=== PATIENT | male | born 1970 | race Caucasian/White ===

== ENCOUNTER 2016-09-12 15:07 | Emergency (ER) | payer BC, OTHER ==
[~2016-09-12] VITALS: Ht 182.9 cm; Wt 85.7 kg
[2016-09-12] MEDS ORDERED: LIDOCAINE 2% 20 ML (XYLOCAINE) VIAL ONE (15:10)
--- NOTE | 2016-09-12 15:12 | ED Upper Extremity ---
General Source: patient Exam Limitations: no limitations History of Present Illness Time seen by provider: 15:08 Initial Comments Just prior to arrival the patient has cut into his left thumb and right palm with a chop saw with carbide blade for chopping wood. He super glued his right palm but his left thumb is now hemostatic although it is cut into the base of the nail down to bone. The finger is still intact. It is painful he denies fever nausea, vomiting diarrhea, malaise. Last tetanus vaccine was in . No other significant medical history. He does work as a physical education and primary education. Allergies and Home Medications Allergies Coded Allergies: No Known Drug Allergies (Unverified , 09/12/16) Home Medications Hydrocodone/Acetaminophen 1 Each Tablet, 1 EACH PO Q6H PRN for PAIN, #14 Ref 0 Prescribed by: FERMIN MARVIN on 09/12/16 1542 Meloxicam 15 Mg Tablet, #90 (Reported) Sertraline HCl 100 Mg Tablet, #30 (Reported) Sulfamethoxazole/Trimethoprim 1 Each Tablet, 1 EACH PO BID for 7 Days, #14 Ref 0 Prescribed by: FERMIN MARVIN on 09/12/16 1542 Constitutional: No chills, No diaphoresis Respiratory: No cough, No short of breath Cardiovascular: No chest pain, No Hx of Intervention, No syncope Gastrointestinal: No abdominal pain, No constipation, No diarrhea Skin: see HPI, No pruritus, No rash Physical Exam Vital Signs Vital Sign - Last 12Hours 09/12/16 15:08 Temp 99.1 Pulse 99 Resp 24 B/P (MAP) 148/82 Pulse Ox 99 O2 Delivery Room Air Capillary Refill : General Appearance: WD/WN, mild distress (pain) Neck: non-tender, normal inspection Cardiovascular: normal peripheral pulses, regular rate, rhythm, no edema Respiratory: chest non-tender, no respiratory distress, no accessory muscle use Gastrointestinal: non tender, soft Hand: Left (thumb with a linear laceration across the base of the thumbnail severing the thumbnail from its base. Hemostatic, no foreign bodies found on irrigation.), laceration, nail injury Neurologic/Tendon: normal sensation, normal motor functions, normal tendon functions, responds to pain, no evidence tendon injury Neurologic/Psychiatric: no motor/sensory deficits, alert, oriented x 3, other ( distal left thumb tip sensation intact to fine prick, pain.) Progress/Results/Core Measures Results/Orders My Orders Orders - FERMIN MARVIN Hand, Left, 3 Views (09/12/16 15:13) Fentanyl Injection (Sublimaze Injection (09/12/16 15:13) Dipht,Pertuss(Acell),Tet Adult (Boostrix (09/12/16 15:13) Lidocaine 2% Injection 20 Ml (Xylocaine (09/12/16 15:13) Vital Signs/I&O Vital Sign - Last 12Hours 09/12/16 09/12/16 15:08 16:01 Temp 99.1 Pulse 99 92 Resp 24 18 B/P (MAP) 148/82 Pulse Ox 99 99 O2 Delivery Room Air Progress Note : Time: 15:34 Progress Note After cleaning the wound the wound is hemostatic without foreign debris seen on x-ray or visual inspection after getting obese irrigation. We'll apply a semi- occlusive dressing of petroleum impregnated gauze and splint the thumb with a goal of immobilizing the 2 distal joints. After eating and a ring block on his left thumb his tendons are intact and his range of motion is intact. Pain is controlled. He did have a little flushing and dizziness on receiving the fentanyl IM. This was temporary. He'll be okay to follow up later this week with his PCP Dr. Lagunas. TDaP given 174: Radiology over read of x-ray does not call the distal phalangeal fracture. However I still feel comfortable immobilizing the joint for a few days until he can follow up with PCP. Follow-up x-ray may be indicated otherwise in primary reasonable to discontinue the splint has patient tolerates this given that his immediate tendon function was intact after the injury. Diagnostic Imaging Diagonstic Imaging: Xray Plain Films/CT/US/NM/MRI: hand Comments Some disruption of the distal phalanges of the left first digit. No foreign bodies seen on x-ray. [facility] [place], [place] NAME: LYSSA HERNANDEZ REC#: [id number] PT STATUS: DEP ER : 1970 PHYSICIAN: FERMIN MARVIN MD ADMIT DATE: 09/12/16/ER Signed Date of Exam:09/12/16 HAND, LEFT, 3 VIEWS HAND, LEFT, 3 VIEWS COMPARISON: None available. INDICATION: Laceration of distal first digit due to a table saw injury. TECHNIQUE: PA, oblique and lateral views of the hand. FINDINGS: No fracture or traumatic malalignment. No radiopaque foreign body. Joint spaces are well-maintained. IMPRESSION: 1. No acute fracture or malalignment. 2. No radiopaque foreign body. Dictated by: Dictated on workstation # [id number] Dict: 09/12/16 1549 Trans: 09/12/16 1732 [id number] Interpreted by: DANA BEARD MD Electronically signed by: DANA BEARD MD 09/12/161731 Departure Impression Impression: Primary Impression: Thumb fracture Qualified Codes: S62.525B - Nondisplaced fracture of distal phalanx of left thumb, initial encounter for open fracture Additional Impression: Thumb laceration Qualified Codes: S61.012A - Laceration without foreign body of left thumb without damage to nail, initial encounter Disposition: 01 HOME, SELF-CARE Condition: Improved Departure-Patient Inst. Decision time for Depature: 15:37 Referrals: LAKSHMI LAGUNAS MD Patient Instructions: Finger Fracture (DC) Add. Discharge Instructions: You have fractured the distal phalanx of your left thumb as well as a large laceration. He should use petroleum jelly as needed to keep the wound clean and use a gentle soap and water twice daily. Wear the splint until released by your primary care physician. You have received a tetanus vaccination today. He'll be given pain meds to use if the Tylenol and meloxicam and ice are insufficient to control your pain. The numbing medicine will wear off in about 45 minutes. The pain medicine I'm giving you is called hydrocodone and will cause constipation so it should be used with MiraLAX every day to treat the subsequent constipation. If you have increased swelling pain that is intractable, nausea, fever or other signs of red streaks going up the arm that I be consistent with a wound infection you should return to the ER or your primary care physician immediately. He will also be given antibiotics to take for the next week. Scripts Hydrocodone/Acetaminophen (Hydrocodon -Acetaminophen 5-325) 1 Each Tablet 1 EACH PO Q6H Y for PAIN, #14 TAB 0 Refills Prov: FERMIN MARVIN 09/12/16 Sulfamethoxazole/Trimethoprim (Bactrim Ds Tablet) 1 Each Tablet 1 EACH PO BID for 7 Days, #14 TAB 0 Refills Prov: FERMIN MARVIN 09/12/16 Copy Copies To 1: LAKSHMI LAGUNAS MD, TITUS J Sep 12, 2016 15:12
[2016-09-12] MEDS ORDERED: fentaNYL INJECTION 100 MCG/2 ML AMP IM STA (15:13)
[2016-09-12] MEDS ORDERED: TETANUS,DIPTH,PERTUSS P/F (BOOSTRIX) 0.5 ML VIAL IM STA (15:13)
[2016-09-12] MEDS ORDERED: LIDOCAINE 2% 20 ML (XYLOCAINE) VIAL INJ STA (15:13)
[2016-09-12] MEDS ORDERED: MELO15TA39 (15:32)
[2016-09-12] MEDS ORDERED: SERT100T8 (15:32)
[2016-09-12] MEDS ORDERED: HYDR-3812 PO (15:42)
[2016-09-12] MEDS ORDERED: SULF1TAB35 PO (15:42)
--- NOTE | 2016-09-12 15:52 | Diagnostic Imaging Report ---
HAND, LEFT, 3 VIEWS COMPARISON: None available. INDICATION: Laceration of distal first digit due to a table saw injury. TECHNIQUE: PA, oblique and lateral views of the hand. FINDINGS: No fracture or traumatic malalignment. No radiopaque foreign body. Joint spaces are well-maintained. IMPRESSION: 1. No acute fracture or malalignment. 2. No radiopaque foreign body. Dictated by: Dictated on workstation # [id number]
[2016-09-12 16:01] VITALS: BP 119/74
== END 2016-09-12 16:01 | disposition home or self-care (01) ==
LOC: ER 15:11
DX: S61.112A Laceration without foreign body of left thumb with damage to nail, initial encounter (principal); S61.411A Laceration without foreign body of right hand, initial encounter; Z23 Encounter for immunization; W31.2XXA Contact with powered woodworking and forming machines, initial encounter; Y93.H9 Activity, other involving exterior property and land maintenance, building and construction; Y99.8 Other external cause status
CPT/HCPCS: 73130; 90471; 90715; 96372; 99282

== ENCOUNTER → 2017-07-19 | Outpatient (CLI) | payer BC ==
[~2017-07-19] MED LIST: ACHD5005 PO; MELO15TA39; SERT100T8; SULF1TAB35 PO
--- NOTE | 2017-07-19 12:11 | Diagnostic Imaging Report ---
INDICATION: Cough. COMPARISON: None. FINDINGS: Two views of the chest are obtained. Heart size is normal. The pulmonary vessels appear unremarkable. There is no pneumothorax, mediastinal widening, or pleural fluid. The lungs are clear. The osseous structures appear unremarkable. IMPRESSION: Negative chest. Dictated by: Dictated on workstation # [id number]
== END ==
LOC: RAD 11:31
PROVIDERS: ATTEND Family Medicine
DX: R05 Cough (principal); Z79.899 Other long term (current) drug therapy
CPT/HCPCS: 71046

== ENCOUNTER 2019-12-19 22:30 | Emergency (ER) | payer BC, OTHER ==
[~2019-12-19] VITALS: Ht 180 cm; Wt 98.0 kg
[2019-12-19 22:49] VITALS: BP 152/95
[2019-12-19] MEDS ORDERED: AMOXICILLIN 500 MG (POLYMOX) CAP PO STA (22:49)
--- NOTE | 2019-12-19 22:56 | ED EENT ---
History of Present Illness General Chief Complaint: Dental Problems/Pain Stated Complaint: P/O TOOTH EXTRACTION , PAIN Source: patient Exam Limitations: no limitations History of Present Illness Date Seen by Provider: Dec 19, 2019 Time Seen by Provider: 22:44 Initial Comments Patient arrives the ER by private conveyance from home with chief complaint of recent tooth extraction and now pain in the socket on his left upper maxillary molars. He is not having any severe bleeding or purulent discharge. No fever but some mild swelling of the soft tissue around his left face. No nasal discharge or congestion. No fever nausea vomiting or diarrhea. He had a single dose of hydrocodone left over which he took at 1900 without any relief. No antibiotics, topical or opiates from the dentist. Allergies and Home Medications Allergies Coded Allergies: No Known Drug Allergies (Unverified , 09/12/16) Home Medications Hydrocodone Bit/Acetaminophen 1 Each Tablet, 1 EACH PO Q6H PRN for PAIN Prescribed by: FERMIN MARVIN on 09/12/16 154 Sulfamethoxazole/Trimethoprim 1 Each Tablet, 1 EACH PO BID Prescribed by: FERMIN MARVIN on 09/12/16 1542 Patient Home Medication List Home Medication List Reviewed: Yes Review of Systems Review of Systems Constitutional: No chills, No diaphoresis Eyes: Denies Blindness, Denies Drainage Ears: Denies Dizziness, Denies Pain Nose: denies clots, denies congestion Mouth: see HPI, pain, swelling Throat: denies pain, denies swelling All Other Systems Reviewed Negative Unless Noted: Yes Past Abucxqu-Axvikw-Oouctu Hx Patient Social History Alcohol Use: Denies Use Recreational Drug Use: No Smoking Status: Never a Smoker Recent Foreign Travel: No Contact w/Someone Who Travel: No Recent Hopitalizations: No Past Medical History Reproductive Disorders: No Physical Exam Height, Weight, BMI Height: 6'" Weight: 189lbs. oz. 85.327112cq; BMI Method:Stated General Appearance: WD/WN, no apparent distress Eyes: bilateral eye normal inspection, bilateral eye PERRL, bilateral eye EOMI Ears: bilateral ear auricle normal, bilateral ear canal normal Nose: normal inspection; No active bleeding, No discharge Mouth/Throat: other (recent extraction with a blood clot in the socket of the left maxillary molar. No significant fluctuance, swelling or discharge.) Neck: full range of motion, supple Cardiovascular: normal peripheral pulses, regular rate, rhythm Respiratory: no respiratory distress, no accessory muscle use Neurologic/Psychiatric: alert, oriented x 3 Skin: normal color, warm/dry Progress/Results/Core Measures Results/Orders My Orders Orders - FERMIN MARVIN Lidocaine 2% Viscous 15 Ml (Xylocaine Vi (12/19/19 23:00) Amoxicillin Capsule (Polymox Capsule) (12/19/19 22:49) Progress Progress Note : Time: 22:55 Progress Note Viscous lidocaine and Hurricaine spray. Put him on antibiotics and have him follow-up with the dentist. [facility] could not locate the patient. Departure Impression Primary Impression: Dry tooth socket Disposition: HOME, SELF-CARE Condition: Stable Departure-Patient Inst. Decision time for Depature: 22:57 Referrals: LAKSHMI GROSS MD (PCP/Family) Primary Care Physician Patient Instructions: Dental Pain (DC) Add. Discharge Instructions: Viscous lidocaine 5 mL on some gauze packed up into the tooth socket every 4 hours as necessary for pain. When this runs that you may use Orajel or other similar topical ointments. Tylenol 650 mg every 8 hours as necessary for pain. Ibuprofen 800 mg every 8 hours as necessary for pain. Warm, moist heating pads applied to the face may help with pain. Amoxicillin one capsule 3 times a day for the next 7 days. Expect improvement in the next 3-4 days. Hydrocodone one tablet every 6 hours as necessary for breakthrough pain. Follow-up with a dentist for further management of your symptoms. All discharge instructions reviewed with patient and/or family. Voiced understanding. Scripts Amoxicillin (Amoxicillin) 500 Mg Capsule 500 MG PO TID for 7 Days, #21 CAP 0 Refills Prov: FERMIN MARVIN 12/19/19 Hydrocodone/Acetaminophen (Hydrocodone-Acetamin 5-325 mg) 1 Each Tablet 1 EACH PO Q6H PRN for PAIN-SEVERE (8-10), #8 TAB 0 Refills Prov: FERMIN MARVIN 12/19/19 [viscous lidocaine 2%] 2% GEL No Conflict Check 5 ML MM Q4H PRN for PAIN-BREAKTHROUGH, #100 ML 0 Refills Prov: FERMIN MARVIN 12/19/19 FERMIN MARVIN Dec 19, 2019 22:56
[2019-12-19] MEDS ORDERED: LIDOCAINE 2% VISCOUS 15 ML UDC PO ONE (23:00)
[2019-12-19] MEDS ORDERED: HYDR-83 PO (23:02)
[2019-12-19] MEDS ORDERED: viscous lidocaine 2% MM (23:02)
[2019-12-19] MEDS ORDERED: AMOX500C2 PO (23:03)
[2019-12-19] MEDS ORDERED: KETOROLAC 60 MG/2 ML VIAL IM ONE (23:15)
== END 2019-12-19 23:14 | disposition home or self-care (01) ==
LOC: EDUNIT# 22:30 → ER 22:31
DX: M27.3 Alveolitis of jaws (principal)
CPT/HCPCS: 99284

== ENCOUNTER 2021-10-21 05:47 | Emergency (ER) | payer BC ==
[~2021-10-21] VITALS: Ht 180 cm; Wt 88.6 kg
[~2021-10-21 05:47] MED LIST changes: +AMOX500C2 PO; +SERT-414; -SERT100T8; -SULF1TAB35 PO; +SULF1TAB38 PO; +viscous lidocaine 2% MM
[2021-10-21] MEDS ORDERED: NS IV 1000 ML 1,000 ML IV STA (06:04)
[2021-10-21] MEDS ORDERED: KETOROLAC 30 MG/ML VIAL IVP STA (06:04)
[2021-10-21] MEDS ORDERED: fentaNYL INJ 100 MCG/2 ML AMP IVP STA ×2 (06:04→07:33)
[2021-10-21] MEDS ORDERED: ONDANSETRON 4 MG/2 ML (SDV) Z0FRAN IVP ONE ×2 (06:15→07:45)
[2021-10-21 06:17] LABS: BASOPHILS % (AUTO) 0 % (0-10); EOSINOPHILS # (AUTO) 0.1 10^3/uL (0.0-0.3); EOSINOPHILS % (AUTO) 1 % (0-10); HEMATOCRIT 46 % (40-54); HEMOGLOBIN 16.2 g/dL (13.3-17.7); LYMPHOCYTES # (AUTO) 2.5 10^3/uL (1.0-4.0); LYMPHOCYTES % (AUTO) 29 % (12-44); MEAN CORPUSCULAR HEMOGLOBIN 31 pg (25-34); MEAN CORPUSCULAR HGB CONC 35 g/dL (32-36); MEAN CORPUSCULAR VOLUME 88 fL (80-99); MEAN PLATELET VOLUME 8.9 fL (9.0-12.2); MONOCYTES # (AUTO) 0.7 10^3/uL (0.0-1.0); MONOCYTES % (AUTO) 9 % (0-12); NEUTROPHILS # (AUTO) 5.2 10^3/uL (1.8-7.8); NEUTROPHILS % (AUTO) 60 % (42-75); PLATELET COUNT 333 10^3/uL (130-400); WHITE BLOOD COUNT 8.6 10^3/uL (4.3-11.0)
[2021-10-21 06:20] LABS: ALBUMIN 4.5 GM/DL (3.2-4.5); POTASSIUM 3.6 MMOL/L (3.6-5.0)
[2021-10-21 06:21] LABS: CALCIUM 9.4 MG/DL (8.5-10.1)
[2021-10-21 06:22] LABS: TOTAL PROTEIN 7.9 GM/DL (6.4-8.2)
[2021-10-21 06:24] LABS: BILIRUBIN,TOTAL 0.5 MG/DL (0.1-1.0)
--- NOTE | 2021-10-21 06:25 | ED GU-Male ---
General Chief Complaint: - Reproductive Stated Complaint: LEFT SIDE PAIN Nursing Triage Note: Arrives per POV w/ c/o left flank pain that started at approximately 0430. Ambulatory to room, and attached to NIBP and SpO2 monitors. Source: patient Exam Limitations: no limitations History of Present Illness Date Seen by Provider: October 21, 2021 Time Seen by Provider: 06:09 Initial Comments Here with report of acute onset of left flank pain about 4:30 AM. Pain is sharp and stabbing and remains on the left side. Denies blood in his urine or stools. Denies difficulty with bowel movements. Denies ever having problems like this before. Does have nausea due to pain. Timing/Duration: this morning Severity/Quality: moderate, severe, sharp, stabbing Location: left flank Radiation: left flank Activities at Onset: none Prior Genitourinary Problems: none Modifying Factors: Improves With Other (No exacerbating or relieving factors) Associated Symptoms: abdominal pain; No fever/chills; nausea/vomiting Allergies and Home Medications Allergies Coded Allergies: No Known Drug Allergies (Unverified , 09/12/16) Patient Home Medication List Home Medication List Reviewed: Yes Amoxicillin (Amoxicillin) 500 Mg Capsule, 500 MG PO TID Prescribed by: FERMIN MARVIN on 12/19/192302 Hydrocodone Bit/Acetaminophen (Lortab 5 Mg Tablet) 1 Each Tablet, 1 EACH PO Q6H PRN for PAIN Prescribed by: FERMIN MARVIN on 09/12/16 154 Hydrocodone/Acetaminophen (Hydrocodone-Acetamin 5-325 mg) 1 Each Tablet, 1 EACH PO Q6H PRN for PAIN-SEVERE (8-10) Prescribed by: FERMIN MARVIN on 12/19/19 230 Meloxicam (Meloxicam) 15 Mg Tablet, (Reported) Entered as Reported by: GEORGES FRANCOIS on 09/12/16 153 Sertraline HCl (Sertraline HCl) 100 Mg Tablet, (Reported) Entered as Reported by: GEORGES FRANCOIS on 09/12/16 153 Sulfamethoxazole/Trimethoprim (Bactrim Ds Tablet) 1 Each Tablet, 1 EACH PO BID Prescribed by: FERMIN MARVIN on 09/12/16 154 [viscous lidocaine 2%] 2% GEL, 5 ML MM Q4H PRN for PAIN-BREAKTHROUGH Prescribed by: FERMIN MARVIN on 12/19/19 9833 Review of Systems Review of Systems Constitutional: see HPI; No chills, No fever EENTM: No nose congestion, No throat pain Respiratory: No cough, No short of breath Cardiovascular: no symptoms reported Gastrointestinal: abdominal pain, nausea; No vomiting Genitourinary: denies dysuria; flank pain Musculoskeletal: back pain; No muscle pain Skin: no symptoms reported All Other Systemes Reviewed Negative Unless Noted: Yes Past Djbynms-Kkjued-Yvcrcw Hx Patient Social History Tobacco Use?: No Use of E-Cig and/or Vaping dev: No Substance use?: No Alcohol Use?: No Past Medical History Surgeries: No Respiratory: No Cardiac: No Neurological: No Reproductive Disorders: No Gastrointestinal: No Musculoskeletal: No Endocrine: No Cancer: No Psychosocial: No Family Medical History Reviewed Nursing Family Hx Physical Exam Vital Signs Vital Signs - First Documented 10/21/21 05:55 Temp 36.8 Pulse 66 Resp 20 B/P (MAP) 157/101 (119) Pulse Ox 100 O2 Delivery Room Air Capillary Refill : Less Than 3 Seconds Height, Weight, BMI Height: 6'" Weight: 189lbs. oz. 85.088902or; 27.00 BMI Method:Stated General Appearance: WD/WN, moderate distress, other (Difficulty sitting still due to pain in the left flank. Pacing about room.) Neck: full range of motion, supple Cardiovascular: regular rate, rhythm, no murmur Respiratory: lungs clear, normal breath sounds Gastrointestinal: soft, tenderness (Mild left-sided) Back: normal inspection, no CVA tenderness, no vertebral tenderness Extremities: non-tender, normal inspection Neurologic/Psychiatric: alert, oriented x 3 Skin: normal color, warm/dry Progress/Results/Core Measures Suspected Sepsis SIRS Temperature: Pulse: 66 Respiratory Rate: 20 Laboratory Tests 10/21/21 05:17: White Blood Count 8.6 Blood Pressure 157 /101 Mean: 119 Laboratory Tests 10/21/21 05:17: Creatinine 1.19, Platelet Count 333, Total Bilirubin 0.5 Results/Orders Lab Results Laboratory Tests Test 10/21/21 05:17 10/21/21 07:32 Range/Units White Blood Count 8.6 4.3-11.0 10^3/uL Red Blood Count 5.19 4.30-5.52 10^6/uL Hemoglobin 16.2 13.3-17.7 g/dL Hematocrit 46 40-54 % Mean Corpuscular Volume 88 80-99 fL Mean Corpuscular Hemoglobin 31 25-34 pg Mean Corpuscular Hemoglobin Concent 35 32-36 g/dL Red Cell Distribution Width 12.3 10.0-14.5 % Platelet Count 333 130-400 10^3/uL Mean Platelet Volume 8.9 L 9.0-12.2 fL Immature Granulocyte % (Auto) 1 % Neutrophils (%) (Auto) 60 42-75 % Lymphocytes (%) (Auto) 29 12-44 % Monocytes (%) (Auto) 9 0-12 % Eosinophils (%) (Auto) 1 0-10 % Basophils (%) (Auto) 0 0-10 % Neutrophils # (Auto) 5.2 1.8-7.8 10^3/uL Lymphocytes # (Auto) 2.5 1.0-4.0 10^3/uL Monocytes # (Auto) 0.7 0.0-1.0 10^3/uL Eosinophils # (Auto) 0.1 0.0-0.3 10^3/uL Basophils # (Auto) 0.0 0.0-0.1 10^3/uL Immature Granulocyte # (Auto) 0.0 0.0-0.1 10^3/uL Sodium Level 142 135-145 MMOL/L Potassium Level 3.6 3.6-5.0 MMOL/L Chloride Level 105 98-107 MMOL/L Carbon Dioxide Level 23 21-32 MMOL/L Anion Gap 14 5-14 MMOL/L Blood Urea Nitrogen 13 7-18 MG/DL Creatinine 1.19 0.60-1.30 MG/DL Estimat Glomerular Filtration Rate 75 BUN/Creatinine Ratio 11 Glucose Level 113 H 70-105 MG/DL Calcium Level 9.4 8.5-10.1 MG/DL Corrected Calcium 9.0 8.5-10.1 MG/DL Total Bilirubin 0.5 0.1-1.0 MG/DL Aspartate Amino Transf (AST/SGOT) 36 H 5-34 U/L Alanine Aminotransferase (ALT/SGPT) 52 0-55 U/L Alkaline Phosphatase 102 40-136 U/L C-Reactive Protein High Sensitivity 0.22 0.00-0.50 MG/DL Total Protein 7.9 6.4-8.2 GM/DL Albumin 4.5 3.2-4.5 GM/DL Urine Color YELLOW Urine Clarity CLEAR Urine pH 5.5 5-9 Urine Specific [place] >=1.030 1.016-1.022 Urine Protein NEGATIVE NEGATIVE Urine Glucose (UA) NEGATIVE NEGATIVE Urine Ketones NEGATIVE NEGATIVE Urine Nitrite NEGATIVE NEGATIVE Urine Bilirubin NEGATIVE NEGATIVE Urine Urobilinogen 0.2 < = 1.0 MG/DL Urine Leukocyte Esterase NEGATIVE NEGATIVE Urine RBC (Auto) 1+ H NEGATIVE Urine RBC RARE /HPF Urine WBC RARE /HPF Urine Crystals PRESENT H /LPF Urine Amorphous Sediment RARE MARCO A URATES H /LPF Urine Bacteria NEGATIVE /HPF Urine Casts NONE /LPF Urine Mucus SMALL H /LPF Urine Culture Indicated NO My Orders Orders - NEERAJ LOPEZ MD Cbc With Automated Diff (10/21/21 06:04) Comprehensive Metabolic Panel (10/21/21 06:04) Hs C Reactive Protein (10/21/21 06:04) Ua Culture If Indicated (10/21/21 06:04) Ondansetron Injection (Zofran Injectio (10/21/21 06:15) Ns Iv 1000 Ml (Sodium Chloride 0.9%) (10/21/21 06:04) Ed Iv/Invasive Line Start (10/21/21 06:04) Fentanyl Inj (Sublimaze Injection) (10/21/21 06:04) Ketorolac Injection (Toradol Injection) (10/21/21 06:04) Ct Abd/Pelvis Wo(Kidney Stone) (10/21/21 06:35) Abdomen/Kub 1view (10/21/21 06:47) Hydrocodone/Apap 5/325 Tablet (Lortab 5 (10/21/21 07:30) Fentanyl Inj (Sublimaze Injection) (10/21/21 07:33) Ondansetron Injection (Zofran Injectio (10/21/21 07:45) Medications Given in ED Current Medications Medications Dose Ordered Sig/Phil Route Start Time Stop Time Status Last Admin Dose Admin Ondansetron HCl 4 mg ONCE ONCE IVP 10/21/21 06:15 10/21/21 06:16 DC 10/21/21 06:16 4 MG Ondansetron HCl 4 mg ONCE ONCE IVP 10/21/21 07:45 10/21/21 07:46 DC 10/21/21 07:41 4 MG Vital Signs/I&O 10/21/21 05:55 Temp 36.8 Pulse 66 Resp 20 B/P (MAP) 157/101 (119) Pulse Ox 100 O2 Delivery Room Air Capillary Refill : Less Than 3 Seconds Blood Pressure Mean: 119 Progress Note : Progress Note Seen and evaluated. IV, labs, UA, normal saline 1 L bolus, Zofran 4 mg IV, Toradol 30 mg IV and fentanyl 75 mcg IV ordered. Monitor patient. 0856: We have repeated fentanyl 50 mcg IV. He also received hydrocodone 5/325 1 tab p.o. Repeat Zofran given. He has vomited now and actually feels much better. CT scan does show small left-sided distal ureteral stone as well as hydronephrosis. This should pass but I have given him instructions in case pain persists. Discharged home with return precautions. Patient verbalized understanding of instructions and agreement with plan. Diagnostic Imaging Diagonstic Imaging: CT Plain Films/CT/US/NM/MRI: abdomen, pelvis Comments [facility], [place] NAME: [facility] REC#: [id number] PT STATUS: REG ER : 1970 PHYSICIAN: NEERAJ LOPEZ MD ADMIT DATE: 10/21/21/ER Draft Date of Exam:10/21/21 CT ABD/PELVIS WO(KIDNEY STONE) PROCEDURE: CT urinary tract, rule out kidney stone. TECHNIQUE: Multiple contiguous axial images were obtained through the abdomen and pelvis without the use of intravenous contrast. Auto Exposure Controls were utilized during the CT exam to meet ALARA standards for radiation dose reduction. INDICATION: 3 hours left flank pain. FINDINGS: A 1.5 mm calculus near the left ureteral orifice at the UVJ results in [id number] upstream left hydroureteronephrosis with mild perinephric and periureteric stranding. No urinoma or fluid collection. No additional radiopaque urinary tract stones. The unobstructed right kidney and ureter appeared normal. Liver, gallbladder, bile ducts, spleen, adrenals and pancreas unremarkable. Small hiatal hernia. The aorta is nonaneurysmal. There is a normal appendix. There is no diverticulitis. There is no bowel obstruction. IMPRESSION: 1. 1.5 mm stone near the left UVJ results in [id number] upstream left-sided hydroureteronephrosis. No other significant finding. Dictated on workstation # [id number] Dict: 10/21/21 0703 Trans: 10/21/21708 [id number] Interpreted by: HARRY CUMMINGS Electronically signed by: Peggy Imaging: Xray Plain Films/CT/US/NM/MRI: abdomen Comments [facility] [place] NAME: [facility]SS[facility] REC#: [id number] PT STATUS: REG ER : 1970 PHYSICIAN: NEERAJ LOPEZ MD ADMIT DATE: 10/21/21/ER Draft Date of Exam:10/21/21 ABDOMEN/KUB 1VIEW INDICATION: Left flank pain. FINDINGS: KUB. Bowel gas pattern is normal. There are no distended bowel loops. No evidence of constipation. No organomegaly. There is a 2 mm calculus noted in the distal left ureter at the trigone of the bladder. IMPRESSION: 2 mm calculus distal left ureter. Dictated on workstation # [id number] Dict: 10/21/21 0700 Trans: 10/21/21716 [facility] [id number] Interpreted by: ELIAS BEARD MD Electronically signed by: Departure Impression Primary Impression: Left ureteral stone Disposition: 01 HOME, SELF-CARE Condition: Improved Departure-Patient Inst. Decision time for Depature: 08:58 Referrals: LAKSHMI GROSS MD (PCP/Family) Primary Care Physician CESAR LANGE MD Patient Instructions: Kidney Stone, Adult ED, How to Strain Your Urine Add. Discharge Instructions: All discharge instructions reviewed with patient and/or family. Voiced understanding. Strain your urine to see if you can capture stone. Follow-up with Dr. Lange or urologist of your choosing for recheck and further evaluation. Return for worse pain, fever, vomiting, weakness, breathing problems or other concerns as needed. Take medications as directed. Drink plenty of fluids. Scripts Tamsulosin HCl (Flomax) 0.4 Mg Cap 0.4 MG PO DAILY for 14 Days, #14 CAP 0 Refills Prov: NEERAJ LOPEZ MD 10/21/21 Hydrocodone Bit/Acetaminophen (HYDROcodone/APAP 5 MG/325 MG TAB) 1 Tab Tab 1 TAB PO Q6H for Pain, #8 TAB 0 Refills Prov: NEERAJ LOPEZ MD 10/21/21 Cephalexin (Cephalexin) 500 Mg Tablet 500 MG PO BID for 7 Days, #14 TAB 0 Refills Prov: NEERAJ LOPEZ MD 10/21/21 NEERAJ LOPEZ MD October 21, 2021 06:25
[2021-10-21 06:26] LABS: CREATININE SERUM 1.19 MG/DL (0.60-1.30)
--- NOTE | 2021-10-21 07:10 | Diagnostic Imaging Report ---
PROCEDURE: CT urinary tract, rule out kidney stone. TECHNIQUE: Multiple contiguous axial images were obtained through the abdomen and pelvis without the use of intravenous contrast. Auto Exposure Controls were utilized during the CT exam to meet ALARA standards for radiation dose reduction. INDICATION: 3 hours left flank pain. FINDINGS: A 1.5 mm calculus near the left ureteral orifice at the UVJ results in [id number]-da-[id number] upstream left hydroureteronephrosis with mild perinephric and periureteric stranding. No urinoma or fluid collection. No additional radiopaque urinary tract stones. The unobstructed right kidney and ureter appeared normal. Liver, gallbladder, bile ducts, spleen, adrenals and pancreas unremarkable. Small hiatal hernia. The aorta is nonaneurysmal. There is a normal appendix. There is no diverticulitis. There is no bowel obstruction. IMPRESSION: 1. 1.5 mm stone near the left UVJ results in [id number] upstream left-sided hydroureteronephrosis. No other significant finding. Dictated by: Dictated on workstation # [id number]
--- NOTE | 2021-10-21 07:18 | Diagnostic Imaging Report ---
INDICATION: Left flank pain. FINDINGS: KUB. Bowel gas pattern is normal. There are no distended bowel loops. No evidence of constipation. No organomegaly. There is a 2 mm calculus noted in the distal left ureter at the trigone of the bladder. IMPRESSION: 2 mm calculus distal left ureter. Dictated by: Dictated on workstation # [id number]
[2021-10-21] MEDS ORDERED: HYDROcodone/APAP 5 MG/325 MG (LORTAB) TAB PO ONE (07:30)
[2021-10-21 07:37] LABS: BILIRUBIN,URINE NEGATIVE (NEGATIVE); CLARITY,URINE CLEAR; COLOR,URINE YELLOW; GLUCOSE, URINE (UA) NEGATIVE (NEGATIVE); KETONES,URINE NEGATIVE (NEGATIVE); LEUKOCYTE ESTERASE ,URINE NEGATIVE (NEGATIVE); NITRITE,URINE NEGATIVE (NEGATIVE); PH,URINE 5.5 (5-9); PROTEIN,URINE NEGATIVE (NEGATIVE)
[2021-10-21 07:48] LABS: AMORPHOUS SEDIMENT,UR RARE AMOR URATES /LPF; BACTERIA,URINE NEGATIVE /HPF; RBC,URINE RARE /HPF; WBC,URINE RARE /HPF
[2021-10-21] MEDS ORDERED: ACHD5005 PO (09:01)
[2021-10-21] MEDS ORDERED: TMSL.4C PO (09:01)
[2021-10-21] MEDS ORDERED: CEPH500T PO (09:01)
[2021-10-21 09:10] VITALS: BP 153/81
== END 2021-10-21 09:10 | disposition home or self-care (01) ==
LOC: EDUNIT# 05:47 → ER 05:53
DX: N13.2 Hydronephrosis with renal and ureteral calculous obstruction (principal)
CPT/HCPCS: 36415; 74018; 74176; 80053; 81000; 85025; 86141